=== PATIENT | female | born 1990 | race African-American/Black ===

== ENCOUNTER 2020-09-28 20:10 | Observation (INO) ==
[2020-09-28] MEDS ORDERED: SODIUM CHLORIDE 0.9% 1,000 ML IV STA (20:34)
[2020-09-28] MEDS ORDERED: ONDANSETRON 4 MG/2 ML VIAL IV ONE (20:34)
[2020-09-28 20:50] LABS: Basophils % 0.2 % (0.0-0.8); Hematocrit 34.5 VOL% (35.7-47.0); Hemoglobin 11.5 GM/DL (12.0-16.0); Immature Granulocytes % 0.5 %; Immature Granulocytes Absolute 0.03 #; Lymphocytes # 1.2 10*3/uL (1.4-4.0); Lymphocytes % 20.1 % (21.3-54.2); Mean Corpuscular HGB Conc 33.3 GM/DL (32-36); Mean Corpuscular Volume 84.1 FL (87-102); Monocytes % 10.1 % (1.7-12.7); Neutrophils % 69.1 % (38.7-73.9); Platelet Count 259 T/CUMM (130-400); Red Cell Distribution Width 14.6 % (9.3-17.3)
[2020-09-28 21:09] LABS: Albumin 3.2 G/DL (3.4-5.0); Bilirubin,Total 0.8 MG/DL (0.2-1.0); Calcium 9.1 MG/DL (8.5-10.1); Osmolality,Calculated 263.4 MOS/KG (273-304); Potassium 3.3 MMOL/L (3.5-5.1); Total Protein 8.6 G/DL (6.4-8.2)
[2020-09-28 21:31] LABS: Bacteria,Urine Occasional /HPF (Few); Bilirubin,Urine Negative (Negative); Blood, Urine Negative (Negative); Glucose,Urine (UA) Negative (Negative); Ketones,Urine 5 mg/dL (Negative); Mucus,Urine Many /LPF (Occasional); Nitrite,Urine Negative (Negative); Protein,Urine Negative; RBC,Urine 2 /HPF (0-4); Squamous Epithelial Cell,Urine Occasional /HPF (0-10); Urine Appearance CLEAR (Clear); Urine Color Amber (Yellow); WBC,Urine 3 /HPF (0-6)
[2020-09-28] MEDS ORDERED: ONDANSETRON 4 MG/2 ML VIAL IV PRN (21:54)
[2020-09-28] MEDS ORDERED: BISACODYL 10 MG SUPP RECTAL PRN (21:54)
[2020-09-28] MEDS ORDERED: DEXTROSE 5% LACTATED RINGERS 1,000 ML IV SCH (22:00)
[2020-09-28] MEDS ORDERED: FAMOTIDINE 20 MG/2 ML VIAL IV SCH (22:00)
[2020-09-28 22:16] LABS: Barbiturates Screen,Urine Negative (Negative); Benzodiazepines Screen,Urine Negative (Negative); Cannabinoid Screen,Urine Negative (Negative); Opiate Screen,Urine Negative (Negative); Phencyclidine Screen,Urine Negative (Negative)
[2020-09-28] MEDS ORDERED: PROMETHAZINE 25 MG/1 ML VIAL IM PRN (23:29)
[2020-09-28] MEDS ORDERED: MEPERIDINE 50 MG/1 ML VIAL IM PRN (23:29)
[2020-09-28] MEDS: DEXTROSE 5% NACL 0.45% 1,000 ML IV SCH (23:30)
[2020-09-28] MEDS ORDERED: PROMETHAZINE 25 MG/1 ML VIAL ONE (23:32)
[2020-09-28] MEDS ORDERED: MEPERIDINE 50 MG/1 ML VIAL ONE (23:32)
[2020-09-28] MEDS ORDERED: POTASSIUM CHLORIDE RIDER 20 MEQ in PREMIX 1 EACH IV PRN (23:47)
[2020-09-28] MEDS ORDERED: METOCLOPRAMIDE 10 MG/2 ML VIAL IV PRN (23:48)
[2020-09-29] MEDS: POTASSIUM CHLORIDE RIDER 10 MEQ in PREMIX 1 EACH IV PRN ×4 (01:00→05:46)
[2020-09-29 05:52] LABS: Basophils % 0.3 % (0.0-0.8); Hematocrit 33.9 VOL% (35.7-47.0); Immature Granulocytes % 0.3 %; Immature Granulocytes Absolute 0.02 #; Lymphocytes # 1.3 10*3/uL (1.4-4.0); Lymphocytes % 20.1 % (21.3-54.2); Mean Corpuscular HGB Conc 32.4 GM/DL (32-36); Mean Platelet Volume 9.6 FL (9.6-12.0); Neutrophils % 69.3 % (38.7-73.9); Platelet Count 256 T/CUMM (130-400); Red Blood Count 3.94 MC/CUMM (3.8-5.5); Red Cell Distribution Width 14.6 % (9.3-17.3); White Blood Count 6.3 T/CUMM (4-12)
[2020-09-29 06:16] LABS: Bilirubin,Total 1.4 MG/DL (0.2-1.0); Calcium 8.9 MG/DL (8.5-10.1); Osmolality,Calculated 260.7 MOS/KG (273-304); Potassium 3.3 MMOL/L (3.5-5.1); Total Protein 8.1 G/DL (6.4-8.2)
[2020-09-29] MEDS ORDERED: ACETAMINOPHEN 500 MG TABLET PO PRN (07:15)
[2020-09-29] MEDS: DEXTROSE 5% NACL 0.45% 1,000 ML IV SCH (07:29)
[2020-09-29 11:43] VITALS: BP 134/76
== END 2020-09-29 14:15 | disposition home or self-care (01) ==
LOC: N.EDINP 20:10 → N.ED 20:10 → N.OB 22:30
PROVIDERS: ADMIT Obstetrics & Gynecology; ATTEND Obstetrics & Gynecology